=== PATIENT | female | born 1985 | race African-American/Black ===

== ENCOUNTER 2017-12-07 22:42 | Emergency (ER) | payer SELFPAY ==
[~2017-12-07] VITALS: Ht 170.2 cm; Wt 59.0 kg
[2017-12-07] MEDS ORDERED: Sodium Chloride 500ML 500 ML IV ONE (23:18)
[2017-12-07] MEDS ORDERED: Albuterol ud Inhalation HHN ONE (23:30)
[2017-12-07] MEDS ORDERED: Ipratropium 0.02% Inh Soln 2.5ml UD HHN ONE (23:30)
[2017-12-07] MEDS ORDERED: Solu-MEDROL 125mg Inj IVP ONE (23:30)
[2017-12-07] MEDS ORDERED: DiphenhydrAMINE 50mg/ml Inj IVP ONE (23:30)
[2017-12-07] MEDS ORDERED: Tubing IV Cassette IV ONE (23:35)
[2017-12-07 23:36] LABS: EOSINOPHILS % (AUTO) 5.7 % (0.0-3.0); HEMATOCRIT 41.3 % (37.0-47.0); HEMOGLOBIN 13.6 G/DL (12.0-16.0); LYMPHOCYTES % (AUTO) 27.9 % (20.0-45.0); MEAN CORPUSCULAR VOLUME 99 FL (80-99); MONOCYTES % (AUTO) 8.4 % (1.0-10.0); PLATELET COUNT 339 K/UL (150-450); RED CELL DISTRIBUTION WIDTH 11.1 % (11.6-14.8); WHITE BLOOD COUNT 8.8 K/UL (4.8-10.8)
[2017-12-08 00:02] LABS: ANION GAP 8 mmol/L (5-15); BLOOD UREA NITROGEN 9 mg/dL (7-18); CARBON DIOXIDE 26 MMOL/L (21-32); CHLORIDE 104 MMOL/L (98-107); CREATININE 0.9 MG/DL (0.55-1.30); POTASSIUM 3.9 MMOL/L (3.5-5.1); SODIUM 138 MMOL/L (136-145)
[2017-12-08 00:07] LABS: ALANINE AMINOTRANSFERASE < 6 U/L (12-78); ALBUMIN 3.9 G/DL (3.4-5.0); ALKALINE PHOSPHATASE 68 U/L (46-116); ASPARTATE AMINO TRANSFERASE 16 U/L (15-37); BILIRUBIN,TOTAL 0.3 MG/DL (0.2-1.0)
[2017-12-08 00:17] VITALS: BP 141/79
[2017-12-08] MEDS ORDERED: EPIPEN 2-P0.3 MG/0.3 IM (00:36)
[2017-12-08] MEDS ORDERED: PREDNISONE20 MG ORAL (00:36)
[2017-12-08] MEDS ORDERED: DIPHENHYDRAMINE25 M1 ORAL (00:36)
[2017-12-08 00:47] VITALS: BP 141/79
--- NOTE | 2017-12-08 03:59 | Emergency Room Report ---
History of Present Illness General Chief Complaint: Allergic Reaction Source: Patient Present Illness HPI 32-year-old female presents ED for evaluation. Patient states she is having allergic reaction. Has history of allergy to she finished. States she was likely exposed today at work. Notes chest tightness, itchiness throat. Denies any rash. Denies any tongue swelling. No other aggravating relieving factors. Denies any other associated symptoms Allergies: Coded Allergies: No Known Allergies (Unverified , 12/07/17) Patient History Past Medical History: asthma Past Surgical History: none Pertinent Family History: none Social History: Denies: smoking, alcohol use, drug use Last Menstrual Period: 1 week ago Now: No Immunizations: UTD Reviewed Nursing Documentation: PMH: Agreed, PSxH: Agreed Nursing Documentation-PMH Past Medical History: No History, Except For Hx Asthma: Yes Review of Systems All Other Systems: negative except mentioned in HPI Physical Exam Vital Signs Date Time Temp Pulse Resp B/P (MAP) Pulse Ox O2 Delivery O2 Flow Rate FiO2 12/07/17 22:54 98.1 65 16 157/106 97 Room Air 12/07/17 23:37 21 Sp02 EP Interpretation: reviewed, normal General Appearance: no apparent distress, alert, GCS 15, non-toxic Head: normocephalic, atraumatic Eyes: bilateral eye normal inspection, bilateral eye PERRL ENT: hearing grossly normal, normal pharynx, no angioedema, normal voice Neck: full range of motion, supple/symm/no masses Respiratory: chest non-tender, decreased breath sounds, speaking full sentences Cardiovascular #1: regular rate, rhythm, no edema Cardiovascular #2: 2+ carotid (R), 2+ carotid (L), 2+ radial (R), 2+ radial (L) , 2+ dorsalis pedis (R), 2+ dorsalis pedis (L) Gastrointestinal: normal bowel sounds, non tender, soft, non-distended, no guarding, no rebound Rectal: deferred Genitourinary: normal inspection, no CVA tenderness Musculoskeletal: back normal, gait/station normal, normal range of motion, non- tender Neurologic: alert, oriented x3, responsive, motor strength/tone normal, sensory intact, speech normal Psychiatric: judgement/insight normal, memory normal, mood/affect normal, no suicidal/homicidal ideation Reflexes: 3+ bicep (R), 3+ bicep (L), 3+ tricep (R), 3+ tricep (L), 3+ knee (R) , 3+ knee (L) Skin: normal color, no rash, warm/dry, well hydrated Lymphatic: no adenopathy Medical Decision Making Diagnostic Impression: Primary Impression: Allergic reaction Qualified Codes: T78.40XA - Allergy, unspecified, initial encounter ER Course Hospital Course 32-year-old female presents to ED with chest tightness and throat scratchiness after exposure to shellfish Differential diagnoses include: allergic reaction, angioedema , anaphylaxis Clinical course Patient placed on stretcher. clinical research monitor. After initial history and physical, I ordered Solu-Medrol, Benadryl, IVFs, nebs Labs reviewed - electrolytes okay, no leukocytosis, hemoglobin/hematocrit okay Upon reassessment patient states she feels better. Given improvement of symptoms I believe patient can be safely discharged to home. i. I feel this is a highly complex case requiring extensive working including EKG/Rhythm strip, Xray/CT/US, Blood/urine lab work, repeat exams while in ED, and administration of strong opiates/narcotics for pain control, admission to hospital or close patient follow up. Diagnosis - allergic reaction Stable and discharged to home with prescriptions for epipen, prednisone, Benadryl. Followup with PMD. Return to ED if symptoms recur or worsen Labs Test 12/07/17 23:24 White Blood Count 8.8 K/UL (4.8-10.8) Red Blood Count 4.20 M/UL (4.20-5.40) Hemoglobin 13.6 G/DL (12.0-16.0) Hematocrit 41.3 % (37.0-47.0) Mean Corpuscular Volume 99 FL (80-99) Mean Corpuscular Hemoglobin 32.5 PG (27.0-31.0) Mean Corpuscular Hemoglobin Concent 33.0 G/DL (32.0-36.0) Red Cell Distribution Width 11.1 % (11.6-14.8) Platelet Count 339 K/UL (150-450) Mean Platelet Volume 6.2 FL (6.5-10.1) Neutrophils (%) (Auto) 57.0 % (45.0-75.0) Lymphocytes (%) (Auto) 27.9 % (20.0-45.0) Monocytes (%) (Auto) 8.4 % (1.0-10.0) Eosinophils (%) (Auto) 5.7 % (0.0-3.0) Basophils (%) (Auto) 1.0 % (0.0-2.0) Sodium Level 138 MMOL/L (136-145) Potassium Level 3.9 MMOL/L (3.5-5.1) Chloride Level 104 MMOL/L (98-107) Carbon Dioxide Level 26 MMOL/L (21-32) Anion Gap 8 mmol/L (5-15) Blood Urea Nitrogen 9 mg/dL (7-18) Creatinine 0.9 MG/DL (0.55-1.30) Estimat Glomerular Filtration Rate > 60 mL/min (>60) Glucose Level 88 MG/DL (74-106) Calcium Level 9.0 MG/DL (8.5-10.1) Total Bilirubin 0.3 MG/DL (0.2-1.0) Aspartate Amino Transf (AST/SGOT) 16 U/L (15-37) Alanine Aminotransferase (ALT/SGPT) < 6 U/L (12-78) Alkaline Phosphatase 68 U/L (46-116) Total Protein 7.7 G/DL (6.4-8.2) Albumin 3.9 G/DL (3.4-5.0) Globulin 3.8 g/dL Albumin/Globulin Ratio 1.0 (1.0-2.7) Last Vital Signs Date Time Temp Pulse Resp B/P (MAP) Pulse Ox O2 Delivery O2 Flow Rate FiO2 12/08/17 02:00 79 20 99 Room Air 21 12/08/17 00:47 98.1 141/79 Status: improved Disposition: HOME, SELF-CARE Condition: Stable Scripts Epinephrine (Epipen 2-Andres) 0.3 Mg/0.3 Ml Auto.injct 0.3 MG IM ONCE, #1 EA Prov: BOYD COSTA M.D. 12/08/17 Diphenhydramine Hcl* (DIPHENHYDRAMINE HCL*) 25 Mg Capsule 25 MG ORAL Q6H Y for Itching for 5 Days, #30 CAP 0 Refills Prov: BOYD COSTA M.D. 12/08/17 Prednisone* (PREDNISONE*) 20 Mg Tablet 40 MG ORAL DAILY, #10 TAB Prov: BOYD COSTA M.D. 12/08/17 Referrals: NOT CHOSEN IPA/,REFERRING (PCP) Patient Instructions: Anaphylactic Reaction, [id number] BOYD COSTA M.D. Dec 08, 2017 03:59
== END 2017-12-08 00:50 | disposition home or self-care (01) ==
LOC: EMR 23:08
DX: T78.40XA Allergy, unspecified, initial encounter (principal); J45.909 Unspecified asthma, uncomplicated; X58.XXXA Exposure to other specified factors, initial encounter
CPT/HCPCS: 36415; 80053; 85025; 94640; 94664; 96361; 96374; 96375; 99284; J1200; J2930; J7040; S0028